=== PATIENT | male | born 1985 | race Caucasian/White ===

== ENCOUNTER → 2020-07-08 | Outpatient (CLI) | payer SELFPAY | END | disposition home or self-care (01) | LOC: LABWHC1 12:02 | PROVIDERS: ATTEND Emergency Medicine | DX: Z20.828 Contact with and (suspected) exposure to other viral communicable diseases (principal) | CPT/HCPCS: U0003; C9803 ==

== ENCOUNTER 2023-06-19 17:44 | Inpatient (IN) | payer BC ==
[2023-06-19] MEDS ORDERED: NALOXONE 0.4 MG/ML 1 ML VIAL IV PRN (19:45)
[2023-06-19] MEDS: SODIUM CHLORIDE 0.9% 1,000 ML IV SCH (19:58)
[2023-06-19] MEDS ORDERED: ONDANSETRON 4 MG/2 ML VIAL IVP STA (20:01)
--- NOTE | 2023-06-19 21:08 | ED ---
Skin/Abscess/FB HPI - General Chief complaint: Skin/Abscess/Foreign Body Stated complaint: R Hand Infection Time Seen by Provider: 06/19/23 19:31 Source: patient, EMS Mode of arrival: EMS - History of Present Illness Initial comments: This patient is 37-year-old man who arrives here as a transfer from [facility]. The patient had gone there to have evaluation of swelling to the dorsum of his hand that is been getting progressively worse over approximately 3 days. The patient had not noted injury. Denies systemic symptoms. Case reportedly was discussed with hand surgeon and patient transferred here. He did receive dose of IV Unasyn. complaint: discoloration, other -: days(s) Tetanus Up to Date: yes Location: R hand Severity: moderate Quality: dull Consistency: constant Improves with: immobilization Worsens with: movement Context: none Associated symptoms: denies other symptoms Treatments Prior to Arrival: antibiotic - Related Data Home Medications Medication Instructions Recorded Confirmed Atorvastatin [Lipitor] 10 mg PO DAILY 06/19/23 06/19/23 Fexofenadine HCl [Gloria Allergy] 180 mg PO DAILY 06/19/23 06/19/23 Sertraline [Zoloft] 100 mg PO DAILY 06/19/23 06/19/23 Tamsulosin [Flomax] 0.4 mg PO DAILY 06/19/23 06/19/23 modafiniL [Provigil] 200 mg PO DAILY 06/19/23 06/19/23 Allergies Allergy/AdvReac Type Severity Reaction Status Date / Time Penicillins Allergy Anaphylaxis Verified 06/20/23 15:34 Review of Systems ROS Statement: Those systems with pertinent positive or pertinent negative responses have been documented in the HPI. ROS Other: All systems not noted in ROS Statement are negative. Constitutional: Denies: fever, chills, weakness Respiratory: Denies: cough, dyspnea Cardiovascular: Denies: chest pain, palpitations Gastrointestinal: Denies: nausea, vomiting Skin: Reports: change in color Neurological: Denies: headache, weakness, numbness Past Medical History Past Medical History: Hyperlipidemia History of Any Multi-Drug Resistant Organisms: None Reported Past Surgical History: Hernia Repair Past Anesthesia/Blood Transfusion Reactions: No Reported Reaction Past Psychological History: ADD/ADHD, Anxiety, Depression Smoking Status: Never smoker Past Alcohol Use History: Occasional Past Drug Use History: Marijuana General Exam General appearance: alert, in no apparent distress Head exam: Present: atraumatic, normocephalic Eye exam: Present: normal appearance. Absent: scleral icterus, conjunctival injection Neck exam: Present: normal inspection Respiratory exam: Present: normal lung sounds bilaterally. Absent: respiratory distress, wheezes, rales, rhonchi, stridor Cardiovascular Exam: Present: regular rate, normal rhythm, normal heart sounds. Absent: systolic murmur, diastolic murmur, rubs, gallop GI/Abdominal exam: Present: soft. Absent: tenderness Back exam: Present: normal inspection Neurological exam: Present: alert. Absent: motor sensory deficit Skin exam: Present: warm, dry, intact, erythema. Absent: rash Course Vital Signs 06/19/23 06/19/23 06/19/23 17:55 20:00 21:00 Temperature 99.2 F Pulse Rate 80 84 82 Pulse Rate [ Left] Respiratory 18 18 18 Rate Blood Pressure 132/84 130/78 128/79 Blood Pressure [Right Arm] O2 Sat by Pulse 100 100 100 Oximetry 06/20/23 06/20/23 06:26 07:25 Temperature 98.5 F Pulse Rate 80 Pulse Rate [ 60 Left] Respiratory 16 16 Rate Blood Pressure 113/72 Blood Pressure 132/67 [Right Arm] O2 Sat by Pulse 99 98 Oximetry Medical Decision Making - Medical Decision Making Patient is 37-year-old man transferred here from [facility] to have admission with hand surgery for possible incision and drainage. The patient discussed with the orthopedic surgeon and will be admitted. Fluids and antibiotics are continued. Was pt. sent in by a medical professional or institution (Dr. PA, REGIONAL TRAINER, urgent care, hospital, or senior care...) When possible be specific @ -Yes sent from [facility] to have admission Did you speak to anyone other than the patient for history (EMS, parent, family, police, friend...)? What history was obtained from this source @ -[Patient's partner contributed history Did you review nursing and triage notes (agree or disagree)? Why? @ -[I reviewed and agree with nursing and triage notes] Were old charts reviewed (outside hosp., previous admission, EMS record, old EKG, old radiological studies, urgent care reports/EKG's, senior care records)? Report findings @ -[No old charts were reviewed] Differential Diagnosis (chest pain, altered mental status, abdominal pain women, abdominal pain men, vaginal bleeding, weakness, fever, dyspnea, syncope, headache, dizziness, GI bleed, back pain, seizure, CVA, palpatations, mental health, musculoskeletal)? @ -[The differential diagnosis for the patient's right hand infection includes cellulitis, abscess, septic arthritis, tenosynovitis, amongst other conditions EKG interpreted by me (3pts min.). @ -[As above] X-rays interpreted by me (1pt min.). @ -[None done] CT interpreted by me (1pt min.). @ -[None done] U/S interpreted by me (1pt. min.). @ -[None done] What testing was considered but not performed or refused? (CT, X-rays, U/S, labs)? Why? @ -[None] What meds were considered but not given or refused? Why? @ -[None] Did you discuss the management of the patient with other professionals (professionals i.e. , PA, REGIONAL TRAINER, lab, RT, psych nurse, licensed master social worker, dust collector treater, teacher, medical scientific officer, gearcase assembler)? Give summary @ -[Case discussed with Dr. Romero, with his treatment recommendations incorporated Was smoking cessation discussed for >3mins.? @ -[No] Was critical care preformed (if so, how long)? @ -[No] Were there social determinants of health that impacted care today? How? (Homelessness, low income, unemployed, alcoholism, drug addiction, transportation, low edu. Level, literacy, decrease access to med. care, long-term, rehab)? @ -[No] Was there de-escalation of care discussed even if they declined (Discuss DNR or withdrawal of care, Hospice)? DNR status @ -[No] What co-morbidities impacted this encounter? (DM, HTN, Smoking, COPD, CAD, Cancer, CVA, ARF, Chemo, Hep., AIDS, mental health diagnosis, sleep apnea, morbid obesity)? @ -[None] Was patient admitted / discharged? Hospital course, mention meds given and route, prescriptions, significant lab abnormalities, going to OR and other pertinent info. @ -[Admitted, as above Undiagnosed new problem with uncertain prognosis? @ -[No] Drug Therapy requiring intensive monitoring for toxicity (Heparin, Nitro, Insulin, Cardizem)? @ -[No] Were any procedures done? @ -[No] Diagnosis/symptom? @ -[Acute right hand infection Acute, or Chronic, or Acute on Chronic? @ -[default] Uncomplicated (without systemic symptoms) or Complicated (systemic symptoms)? @ -[Uncomplicated Side effects of treatment? @ -[No] Exacerbation, Progression, or Severe Exacerbation? @ -[No] Poses a threat to life or bodily function? How? (Chest pain, USA, IA, pneumonia, PE, COPD, DKA, ARF, appy, cholecystitis, CVA, Diverticulitis, Homicidal, Suicidal, threat to staff... and all critical care pts) @ -[Yes untreated hand infection can progressed to significant loss of function, possibly to sepsis and - Lab Data Result diagrams: 06/22/23 05:19 06/22/23 05:19 Lab Results 06/20/23 06/20/23 06/21/23 Range/Units 06:36 06:37 04:26 WBC 13.7 H 12.27 H (3.8-10.6) k/uL RBC 4.01 L 3.99 L (4.30-5.90) m/uL Hgb 11.1 L 11.8 L (13.0-17.5) gm/dL Hct 36.4 L 36.2 L (39.0-53.0) % MCV 90.8 90.7 (80.0-100.0) fL MCH 27.7 29.6 (25.0-35.0) pg MCHC 30.5 L 32.6 (31.0-37.0) g/dL RDW 12.7 13.0 (11.5-15.5) % Plt Count 258 281 (150-450) k/uL MPV 7.6 9.6 Immature Gran % (Auto) 0.40 % Absolute Nucleated RBC 0 % Neutrophils % 76 66.9 % Lymphocytes % 16 25.4 % Monocytes % 6 6.3 % Eosinophils % 1 0.6 % Basophils % 0 0.4 % Immature Gran # 0.05 X 10*3/uL Neutrophils # 10.4 H 8.21 H (1.3-7.7) k/uL Lymphocytes # 2.3 3.12 (1.0-4.8) k/uL Monocytes # 0.8 0.77 (0-1.0) k/uL Eosinophils # 0.1 0.07 (0-0.7) k/uL Basophils # 0.0 0.05 (0-0.2) k/uL NRBC/100 WBC Diff 0 (0.00-0.01) X 10*3/uL ESR 10 (0-15) mm/hr Sodium 137 (137-145) mmol/L Potassium 3.9 (3.5-5.1) mmol/L Chloride 108 H (98-107) mmol/L Carbon Dioxide 23 (22-30) mmol/L Anion Gap 6 mmol/L BUN 9 (9-20) mg/dL Creatinine 0.61 L (0.66-1.25) mg/dL Est GFR (CKD-EPI) (>=60) Est GFR (CKD-EPI)AfAm >90 (>60 ml/min/1.73 sqM) Est GFR (CKD-EPI)NonAf >90 (>60 ml/min/1.73 sqM) BUN/Creatinine Ratio (12.00-20.00) Ratio Glucose 92 (74-99) mg/dL Calcium 7.8 L (8.4-10.2) mg/dL C-Reactive Protein 8.9 H (<1.0) mg/dL Vancomycin Trough ug/mL 06/21/23 06/21/23 06/21/23 Range/Units 04:26 10:29 10:29 WBC (3.8-10.6) k/uL RBC (4.30-5.90) m/uL Hgb (13.0-17.5) gm/dL Hct (39.0-53.0) % MCV (80.0-100.0) fL MCH (25.0-35.0) pg MCHC (31.0-37.0) g/dL RDW (11.5-15.5) % Plt Count (150-450) k/uL MPV Immature Gran % (Auto) % Absolute Nucleated RBC % Neutrophils % % Lymphocytes % % Monocytes % % Eosinophils % % Basophils % % Immature Gran # X 10*3/uL Neutrophils # (1.3-7.7) k/uL Lymphocytes # (1.0-4.8) k/uL Monocytes # (0-1.0) k/uL Eosinophils # (0-0.7) k/uL Basophils # (0-0.2) k/uL NRBC/100 WBC Diff (0.00-0.01) X 10*3/uL ESR (0-15) mm/hr Sodium 139 (137-145) mmol/L Potassium 3.5 (3.5-5.1) mmol/L Chloride 105 (98-107) mmol/L Carbon Dioxide 22.5 (22-30) mmol/L Anion Gap 11.50 mmol/L BUN 7.5 L (9-20) mg/dL Creatinine 0.8 0.68 (0.66-1.25) mg/dL Est GFR (CKD-EPI) 118 (>=60) Est GFR (CKD-EPI)AfAm >90 (>60 ml/min/1.73 sqM) Est GFR (CKD-EPI)NonAf >90 (>60 ml/min/1.73 sqM) BUN/Creatinine Ratio 9.38 L (12.00-20.00) Ratio Glucose 164 H (74-99) mg/dL Calcium 8.1 L (8.4-10.2) mg/dL C-Reactive Protein (<1.0) mg/dL Vancomycin Trough 25.2 ug/mL 06/22/23 06/22/23 Range/Units 05:19 05:19 WBC 8.43 (3.8-10.6) k/uL RBC 3.85 L (4.30-5.90) m/uL Hgb 11.2 L (13.0-17.5) gm/dL Hct 35.1 L (39.0-53.0) % MCV 91.2 (80.0-100.0) fL MCH 29.1 (25.0-35.0) pg MCHC 31.9 L (31.0-37.0) g/dL RDW 13.0 (11.5-15.5) % Plt Count 275 (150-450) k/uL MPV 9.4 L Immature Gran % (Auto) 0.20 % Absolute Nucleated RBC 0 % Neutrophils % 56.6 % Lymphocytes % 31.4 % Monocytes % 9.1 % Eosinophils % 2.0 % Basophils % 0.7 % Immature Gran # 0.02 X 10*3/uL Neutrophils # 4.76 (1.3-7.7) k/uL Lymphocytes # 2.65 (1.0-4.8) k/uL Monocytes # 0.77 (0-1.0) k/uL Eosinophils # 0.17 (0-0.7) k/uL Basophils # 0.06 (0-0.2) k/uL NRBC/100 WBC Diff 0 (0.00-0.01) X 10*3/uL ESR (0-15) mm/hr Sodium 139 (137-145) mmol/L Potassium 3.9 (3.5-5.1) mmol/L Chloride 106 (98-107) mmol/L Carbon Dioxide 27 (22-30) mmol/L Anion Gap 6 mmol/L BUN 8 L (9-20) mg/dL Creatinine 0.67 (0.66-1.25) mg/dL Est GFR (CKD-EPI) (>=60) Est GFR (CKD-EPI)AfAm >90 (>60 ml/min/1.73 sqM) Est GFR (CKD-EPI)NonAf >90 (>60 ml/min/1.73 sqM) BUN/Creatinine Ratio (12.00-20.00) Ratio Glucose 92 (74-99) mg/dL Calcium 8.0 L (8.4-10.2) mg/dL C-Reactive Protein (<1.0) mg/dL Vancomycin Trough ug/mL Disposition Clinical Impression: Infected hand Disposition: ADMITTED IP TO THIS HOSP Condition: Fair
[2023-06-19] MEDS: ACETAMINOPHEN TAB 325 MG TAB PO PRN (21:09)
[2023-06-19] MEDS: FAMOTIDINE 20 MG TAB PO SCH (21:09)
[2023-06-19] MEDS: AMPICILLIN-SULBACTAM 3 GM in SODIUM CHLORIDE 0.9% 100 ML IVPB SCH (21:38)
[2023-06-20] MEDS: MELATONIN 5 MG TABLET PO SCH ×2 (03:18→20:26)
[2023-06-20] MEDS: ACETAMINOPHEN TAB 325 MG TAB PO PRN ×2 (03:18→08:06)
[2023-06-20] MEDS: AMPICILLIN-SULBACTAM 3 GM in SODIUM CHLORIDE 0.9% 100 ML IVPB SCH ×3 (03:18→18:37)
[2023-06-20] MEDS ORDERED: LACTATED RINGERS 1,000 ML IV ONE (05:30)
[2023-06-20 06:57] LABS: Basophils % (A) 0 %; Eosinophils # (A) 0.1 k/uL (0-0.7); Eosinophils % (A) 1 %; HCT 36.4 % (39.0-53.0); HGB 11.1 gm/dL (13.0-17.5); Lymphocytes # (A) 2.3 k/uL (1.0-4.8); Lymphocytes % (A) 16 %; MCH 27.7 pg (25.0-35.0); MCHC 30.5 g/dL (31.0-37.0); MCV 90.8 fL (80.0-100.0); Mean Platelet Volume 7.6; Monocytes # (A) 0.8 k/uL (0-1.0); Monocytes % (A) 6 %; Neutrophils # (A) 10.4 k/uL (1.3-7.7); Neutrophils % (A) 76 %; Platelet Count 258 k/uL (150-450); RBC 4.01 m/uL (4.30-5.90); RDW 12.7 % (11.5-15.5); WBC 13.7 k/uL (3.8-10.6)
[2023-06-20 07:06] LABS: African American GFR (CKD) >90 (>60 ml/min/1.73 sqM); Anion Gap 6 mmol/L; Blood Urea Nitrogen 9 mg/dL (9-20); Calcium 7.8 mg/dL (8.4-10.2); Carbon Dioxide 23 mmol/L (22-30); Chloride 108 mmol/L (98-107); Glucose 92 mg/dL (74-99); Non-African American GFR(CKD) >90 (>60 ml/min/1.73 sqM); Potassium 3.9 mmol/L (3.5-5.1); Sodium 137 mmol/L (137-145)
[2023-06-20] MEDS: FAMOTIDINE 20 MG TAB PO SCH ×2 (08:07→20:26)
[2023-06-20] MEDS: SODIUM CHLORIDE 0.9% 1,000 ML IV SCH (08:07)
--- NOTE | 2023-06-20 10:03 | P.HPOR ---
History of Present Illness H&P Date: 06/20/23 Chief Complaint: Right hand/wrist pain Patient is a 37-year-old male who presented to the emergency department at [facility] yesterday with increasing right hand/wrist pain as well as swelling and erythema. Patient seen at bedside this morning lying semirecumbent position. Patient states that on Sunday he noticed his right hand began to hurt on the dorsum. Patient noticed on Sunday/Sunday it began to swell more and became red. Patient did begin to have difficulty extending his right wrist and digits 2 through 5 on the right hand. Patient denies any injuries/traumas to the hand. Patient mentions many years ago he did have what he thinks was a ganglion cyst on his left hand/wrist. Patient denies having any other infections before in the hand. Patient says he does get increased pain when he tries to flex or extend his right wrist or extend the digits and right hand. Patient says pain is alleviated somewhat by medication and keeping his right raya d and mobile. Patient denies any issues with his right elbow. Patient denies chest pain, fever, shortness of breath, nausea, vomiting, change in vision, loss of all/bladder control. Past Medical History Past Medical History: Hyperlipidemia History of Any Multi-Drug Resistant Organisms: None Reported Past Surgical History: Hernia Repair Past Anesthesia/Blood Transfusion Reactions: No Reported Reaction Past Psychological History: ADD/ADHD, Anxiety, Depression Smoking Status: Never smoker Past Alcohol Use History: Occasional Past Drug Use History: Marijuana Medications and Allergies Home Medications Medication Instructions Recorded Confirmed Type Atorvastatin [Lipitor] 10 mg PO DAILY 06/19/23 06/19/23 History Fexofenadine HCl [Gloria Allergy] 180 mg PO DAILY 06/19/23 06/19/23 History Sertraline [Zoloft] 100 mg PO DAILY 06/19/23 06/19/23 History Tamsulosin [Flomax] 0.4 mg PO DAILY 06/19/23 06/19/23 History modafiniL [Provigil] 200 mg PO DAILY 06/19/23 06/19/23 History Allergies Allergy/AdvReac Type Severity Reaction Status Date / Time Penicillins Allergy Anaphylaxis Verified 06/19/23 21:20 Physical Examination Osteopathic Statement: *. No significant issues noted on an osteopathic structural exam other than those noted in the History and Physical/Consult. Inspection: Right hand/wrist one dorsum does present with erythema and swelling. Erythema extends from the dorsum of the right wrist all the way to the MCPJ 2- 5. Negative for any ecchymosis. Negative for any puncture wounds/open wounds Sensation: Sensation is equal, symmetric, bilaterally intact throughout the upper upper extremities Palpation: Significant tenderness to palpation over the right hand dorsum at the wrist on the radial side. TTP does extend distally especially over the second third and fourth web spaces. Fingertips are nontender to palpation. Range of motion: Patient does keep wrist held close to full extension and fingers in flexion. Patient is unable to flex right wrist without having increasing pain. Patient developed to extend digits and right hand without worsening pain. Patient has full range of motion in flexion/extension of right elbow. Motor: 5/5 in all major motor groups in left upper extremity. 5/5 in right elbow in resisted flexion/extension. 4-/5 and right wrist in resisted flexion extension. Special tests: Negative Homans bilaterally. Neurovascular: Radial pulse intact, 2+ bilaterally. Cap refill under 3 seconds in digits in upper extremities. Results - Labs Labs: Abnormal Lab Results - Last 24 Hours (Table) 06/20/23 06/20/23 Range/Units 06:36 06:37 WBC 13.7 H (3.8-10.6) k/uL RBC 4.01 L (4.30-5.90) m/uL Hgb 11.1 L (13.0-17.5) gm/dL Hct 36.4 L (39.0-53.0) % MCHC 30.5 L (31.0-37.0) g/dL Neutrophils # 10.4 H (1.3-7.7) k/uL Chloride 108 H (98-107) mmol/L Creatinine 0.61 L (0.66-1.25) mg/dL Calcium 7.8 L (8.4-10.2) mg/dL H & H 06/20/23 Range/Units 06:37 Hgb 11.1 L (13.0-17.5) gm/dL Hct 36.4 L (39.0-53.0) % Result Diagrams: 06/20/23 06:37 06/20/23 06:36 Assessment and Plan Assessment: 1. Right hand dorsal wrist abscess versus horseshoe abscess vs tenosynovitis vs cellulitis Plan: 1. Right hand dorsal wrist abscess versus horseshoe abscess vs tenosynovitis vs cellulitis - patient stable at bedside this morning. I did discuss findings of exam with my attending, Dr. Romero. At this time we plan for aspiration of right wrist/hand at bedside later this morning. patient to remain NPO at this time. Depending on outcome of aspiration we may move forward with surgery for I&D right wrist/hand later today. Surgery has been boarded for later today. Pain medication as needed. We will continue to follow patient during his stay in hospital. 2. Appreciate medical management and ID management - patient does need medical clearance for surgery; ID consulted for right wrist/hand infection 3. Pain management - tylenol 4. DVT ppx - withhold thinners at this time 5. GI ppx - pepcid 6. PT/OT - WBAT Agree with above findings. Bedside aspiration was attempted and less than 1cc of cloudy appearing fluid was obtained. At this time I cannot rule out any deep infection and recommend surgical incision and drainage with wrist arthrotomy of the right wrist. Risks and benefits of the surgery including bleeding, infection, damage to surrounding tissue, need for further surgery as well as risks of anesthesia including DVT, PE and even and patient wishes to go forward with surgical intervention. We will plan for intervention today 06/20/23. Time with Patient: Less than 30
[2023-06-20 10:23] LABS: C Reactive Protein 8.9 mg/dL (<1.0)
[2023-06-20] MEDS: TAMSULOSIN 0.4 MG CAP.ER.24H PO SCH (10:31)
[2023-06-20] MEDS: SERTRALINE 100 MG TAB PO SCH (10:31)
[2023-06-20] MEDS: ATORVASTATIN 10 MG TAB PO SCH (10:31)
[2023-06-20 10:53] LABS: Erythrocyte Sedimentation Rate 10 mm/hr (0-15)
[2023-06-20] MEDS ORDERED: VANCOMYCIN IV PER PHARMACY 1 EACH MISC MISCELLANE PRN (11:22)
[2023-06-20] MEDS ORDERED: VANCOMYCIN 1,250 MG in SODIUM CHLORIDE 0.9% 250 ML IVPB ONE (12:00)
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
--- NOTE | 2023-06-20 14:26 | P.CONS ---
History of Present Illness - Reason for Consult Consult date: 06/20/23 Medical Management Requesting physician: Mohamud Romero - History of Present Illness History of Presenting Illness: Patient is a very pleasant 37-year-old male with a past medical history of hyperlipidemia, ADHD, anxiety, depression, cannabinoid use disorder and BPH. He presented to the emergency department overnight on 06/19/23 secondary to pain and swelling of right hand. Patient reports he awoke on Sunday morning after sleeping on the couch feeling as though he slept on his hand the wrong way and states it seemed just a little sore. However, he then reports throughout the day Sunday and Sunday he noticed mild swelling and pain in his right hand and wrist but reports the redness, swelling, and pain rapidly worsened since Sunday and that he was unable to get into his primary care doctor so he went to the urgent care and was directed to come straight to the hospital. Upon arrival to the emergency department patient underwent full evaluation. Vital signs were stable with blood pressure 132/84, heart rate 80, respiratory rate 18, tempe rature 99.2F, and SpO2 of 100% on room air. Labs completed and reviewed. CBC revealed leukocytosis with WBC count of 13.7 and normocytic anemia with hemoglobin of 11.1. BMP unremarkable. ESR was normal findings at 10. CRP 8.9. Patient was admitted under orthopedic surgery team and we have been consulted for medical management throughout patient's hospitalization. At time of assessment, patient was preparing to undergo needle aspiration by Dr. Romero orthopedic surgeon at bedside. He reported decreased range of motion and difficulties making a fist secondary to pain and swelling in right hand. He denied having any numbness or focal weakness in his right hand. Sensation and movement of fingers remains intact. Patient denied previously noting any bug bite, abrasion, or cut to his right hand prior to development of redness/swelling/pain. He reports last TDAP was 2013. Patient denies having any fevers, chills, diaphoresis, chest pain, palpitations, shortness of breath, or any other complaints at this time. Review of systems: Pertinent positives and negatives as discussed in HPI, a complete review of systems was performed and all other systems are negative. Physical exam: Vital signs reviewed and stable. General: Nontoxic, no distress and appears stated age. Derm: Skin warm and dry, normal coloration for ethnicity. Patient with moderate erythema and mild swelling covering the dorsal surface of his right hand. Erythema and swelling beginning just proximally of right wrist extending down into dorsal surface of hand and distally into webbed region of fingers. No open wounds, bite alicia, or puncture alicia noted upon examination of skin. Head: Atraumatic, normocephalic and symmetric. Eyes: EOMs intact, no lid lag, and anicteric sclera Mouth: no lip lesions, mucus membranes moist Cardiovascular: regular rate and rhythm with normal S1S2, no murmur, positive posterior tibial pulses bilaterally, and cap refill < 2 seconds. Lungs: Respirations even, regular, and unlabored on room air. Lungs CTA bilaterally, no rhonchi, no rales, no wheezing, and no accessory muscle usage. Abdominal: soft, nontender to palpation, no guarding, no appreciable organomegaly Ext: No gross muscle atrophy, no edema, no contractures. Patient with decreased range of motion in wrist secondary to pain, difficulty making a tight fist and has difficulty bending wrist secondary to reports of significant pain. Patient able to bend and move fingers without difficulty and has full movement of the elbow. Movement and sensation of fingers intact. Neuro: Speech clear, face symmetrical and CN II-XII grossly intact with no noted focal neuro deficits Psych: Alert and oriented to person, place, time, and situation. Appropriate and pleasant affect. Assessment and Plan of Care: Right hand and wrist cellulitis, unable to rule out abscess versus tenosynovitis Leukocytosis -Labs completed and reviewed. CBC revealed leukocytosis with WBC count of 13.7 and normocytic anemia with hemoglobin of 11.1. BMP unremarkable. ESR was normal findings at 10. CRP 8.9. -Continue with IV antibiotic Unasyn 3 g every 6 hours and vancomycin 1250 mg IVPB every 8 hours pending culture results obtained by orthopedic surgery team during needle aspiration. -Infectious disease was consulted, discussed plan of care with Dr. Lara recommended adding on vancomycin in addition to Unasyn. -Continue symptomatic care and pain management . -Primary admitting orthopedic surgery team to manage postoperative dressing/postoperative wound care. -We will follow up on repeat morning CBC and BMP along with vancomycin trough for close monitoring to watch for any signs of vancomycin associated renal toxicity. Hyperlipidemia -Home medications reviewed and reordered. Patient to continue with daily medication regimen with atorvastatin 10 mg daily. ADD/ADHD -We will hold Provigil at this time, patient may resume at time of discharge. Depression and anxiety -Reviewed and reordered sertraline 100 mg daily. BPH -Continue daily medication regimen with Flomax 0.4 mg daily. Thank you for allowing us to participate in the care of this pleasant patient. Do not hesitate to contact us with questions. Someone can be reached from the [facility] hospitalist group all hours of the day at [phone] or via [employer]. Patient was seen independently by Nurse Practitioner. This document was prepared using [employer] dictation software. Please allow for errors in powerhouse operator while rare they do occur. Michael Mcbride NP rendered care for this patient independently, reviewed the findings and plan as documented in the note above. I did not physically speak with or examine the patient on this date. Past Medical History Past Medical History: Hyperlipidemia History of Any Multi-Drug Resistant Organisms: None Reported Past Surgical History: Hernia Repair Past Anesthesia/Blood Transfusion Reactions: No Reported Reaction Past Psychological History: ADD/ADHD, Anxiety, Depression Smoking Status: Never smoker Past Alcohol Use History: Occasional Past Drug Use History: Marijuana Medications and Allergies Home Medications Medication Instructions Recorded Confirmed Type Atorvastatin [Lipitor] 10 mg PO DAILY 06/19/23 06/19/23 History Fexofenadine HCl [Gloria Allergy] 180 mg PO DAILY 06/19/23 06/19/23 History Sertraline [Zoloft] 100 mg PO DAILY 06/19/23 06/19/23 History Tamsulosin [Flomax] 0.4 mg PO DAILY 06/19/23 06/19/23 History modafiniL [Provigil] 200 mg PO DAILY 06/19/23 06/19/23 History Allergies Allergy/AdvReac Type Severity Reaction Status Date / Time Penicillins Allergy Anaphylaxis Verified 06/20/23 15:34 Physical Exam Vitals: Vital Signs Temp Pulse Pulse Resp BP BP Pulse Ox 06/20/23 07:25 98.5 F 60 16 132/67 98 06/20/23 06:26 80 16 113/72 99 06/19/23 21:00 82 18 128/79 100 06/19/23 20:00 84 18 130/78 100 06/19/23 17:55 99.2 F 80 18 132/84 100 Intake and Output 07/25/23 07/26/23 07/26/23 22:59 06:59 14:59 Other: Weight 65.771 kg Results CBC & Chem 7: 06/22/23 05:19 06/22/23 05:19 Labs: Abnormal Lab Results - Last 24 Hours (Table) 06/20/23 06/20/23 Range/Units 06:36 06:37 WBC 13.7 H (3.8-10.6) k/uL RBC 4.01 L (4.30-5.90) m/uL Hgb 11.1 L (13.0-17.5) gm/dL Hct 36.4 L (39.0-53.0) % MCHC 30.5 L (31.0-37.0) g/dL Neutrophils # 10.4 H (1.3-7.7) k/uL Chloride 108 H (98-107) mmol/L Creatinine 0.61 L (0.66-1.25) mg/dL Calcium 7.8 L (8.4-10.2) mg/dL
[2023-06-20] MEDS ORDERED: fentaNYL (PF) 50 MCG/ML 2 ML AMP ONE (16:07)
[2023-06-20] MEDS ORDERED: LIDOCAINE 2% INJ 20 MG/ML (2 ML VIAL) ONE (16:07)
[2023-06-20] MEDS ORDERED: HYDROmorphone (PF) 1 MG/ML ONE (16:07)
[2023-06-20] MEDS ORDERED: MIDAZOLAM 2 MG/2 ML VIAL ONE (16:07)
[2023-06-20] MEDS ORDERED: PROPOFOL 10 MG/ML 20 ML VIAL IV ONE (16:07)
[2023-06-20] MEDS ORDERED: BUPIVACAINE (PF) 0.5% 30 ML VIAL SQ ONE (16:29)
[2023-06-20] MEDS ORDERED: SENNOSIDES-DOCUSATE SODIUM 1 EACH TAB PO PRN (17:05)
[2023-06-20] MEDS: traMADol 50 MG TAB PO SCH (18:32)
[2023-06-20] MEDS: PANTOPRAZOLE 40 MG/10 ML VIAL IVP SCH (18:38)
[2023-06-20] MEDS: HYDROmorphone 0.5 MG/0.5 ML SYRINGE IVP PRN (20:25)
[2023-06-20] MEDS ORDERED: MELATONIN 5 MG TABLET PO SCH (21:00)
[2023-06-20] MEDS: VANCOMYCIN 1,250 MG in SODIUM CHLORIDE 0.9% 250 ML IVPB SCH (21:54)
--- NOTE | 2023-06-20 22:42 | P.CONS ---
History of Present Illness - Reason for Consult Consult date: 06/20/23 - History of Present Illness Patient is a 37-year-old male with a past medical history sniffing and for hyperlipidemia ADHD anxiety and depression presenting to [facility] ER for evaluation of increasing pain swelling redness to the right wrist. Symptom has been going on since weekend without any history of any trauma symptoms getting worse over the last day and 2 patient describes the pain to be more of a sharp in nature almost 10 out of 10 in severity without any radiation however did complain of some numbness to the right elbow area with the center of the patient present to the hospital on arrival to the ER the patient did have a low-grade fever of 99.2 degrees on height patient was not tachycardic hypotensive or hypoxic he did have a white count of 13.7 with a left shift the patient has been normal CRP was 8.9 x-rays not obtained patient did have aspiration of the area by hand surgery this morning with evidence of some milky fluid concerning for underlying infection and has been advising washout of the wrist joint patient was started on Unasyn despite his penicillin allergy and has tolerated so far infectious disease was consulted for further management of antibiotic therapy Past Medical History Past Medical History: Hyperlipidemia History of Any Multi-Drug Resistant Organisms: None Reported Past Surgical History: Hernia Repair Past Anesthesia/Blood Transfusion Reactions: No Reported Reaction Past Psychological History: ADD/ADHD, Anxiety, Depression Smoking Status: Never smoker Past Alcohol Use History: Occasional Past Drug Use History: Marijuana Medications and Allergies Home Medications Medication Instructions Recorded Confirmed Type Atorvastatin [Lipitor] 10 mg PO DAILY 06/19/23 06/19/23 History Fexofenadine HCl [Gloria Allergy] 180 mg PO DAILY 06/19/23 06/19/23 History Sertraline [Zoloft] 100 mg PO DAILY 06/19/23 06/19/23 History Tamsulosin [Flomax] 0.4 mg PO DAILY 06/19/23 06/19/23 History modafiniL [Provigil] 200 mg PO DAILY 06/19/23 06/19/23 History Allergies Allergy/AdvReac Type Severity Reaction Status Date / Time Penicillins Allergy Anaphylaxis Verified 06/20/23 15:34 Physical Exam Vitals: Vital Signs Temp Pulse Pulse Resp BP BP Pulse Ox 06/20/23 07:25 98.5 F 60 16 132/67 98 06/20/23 06:26 80 16 113/72 99 06/19/23 21:00 82 18 128/79 100 06/19/23 20:00 84 18 130/78 100 06/19/23 17:55 99.2 F 80 18 132/84 100 Intake and Output 06/19/23 06/20/23 06/20/23 22:59 06:59 14:59 Intake Total 118 Balance 118 Intake: Oral 118 Other: Weight 65.771 kg Results CBC & Chem 7: 06/20/23 06:37 06/20/23 06:36 Labs: Abnormal Lab Results - Last 24 Hours (Table) 06/20/23 06/20/23 Range/Units 06:36 06:37 WBC 13.7 H (3.8-10.6) k/uL RBC 4.01 L (4.30-5.90) m/uL Hgb 11.1 L (13.0-17.5) gm/dL Hct 36.4 L (39.0-53.0) % MCHC 30.5 L (31.0-37.0) g/dL Neutrophils # 10.4 H (1.3-7.7) k/uL Chloride 108 H (98-107) mmol/L Creatinine 0.61 L (0.66-1.25) mg/dL Calcium 7.8 L (8.4-10.2) mg/dL C-Reactive Protein 8.9 H (<1.0) mg/dL Assessment and Plan Plan: 1patient was in the hospital with a right wrist and dorsal hand cellulitis and concern for possible underlying septic arthritis or abscess likely from gram- positive skin jyotsna 2-penicillin allergy as a child however tolerated Unasyn clinically doubt true penicillin allergy 3-await surgical I&D and deep culture 4-continue Unasyn however add vancomycin while waiting for the cultures to be finalized We will follow on clinical condition and cultures to further adjust medication if needed Thank you for this consultation we will follow the patient along with you Dictation was produced using [email or web address] dictation software. please excuse any grammatical, word or spelling errors. Time with Patient: Greater than 30
[2023-06-21] MEDS: AMPICILLIN-SULBACTAM 3 GM in SODIUM CHLORIDE 0.9% 100 ML IVPB SCH ×5 (00:10→21:16)
[2023-06-21] MEDS: SODIUM CHLORIDE 0.9% 1,000 ML IV SCH ×3 (00:10→21:17)
[2023-06-21] MEDS: HYDROmorphone 0.5 MG/0.5 ML SYRINGE IVP PRN ×6 (00:32→19:43)
[2023-06-21] MEDS: VANCOMYCIN 1,250 MG in SODIUM CHLORIDE 0.9% 250 ML IVPB SCH ×3 (04:09→17:46)
[2023-06-21 08:35] LABS: Basophils # (A) 0.05 X 10*3/uL (0.00-0.10); Basophils % (A) 0.4 %; Eosinophils # (A) 0.07 X 10*3/uL (0.04-0.35); Eosinophils % (A) 0.6 %; HCT 36.2 % (39.6-50.0); HGB 11.8 d/dL (13.0-17.0); Lymphocytes # (A) 3.12 X 10*3/uL (0.90-5.00); Lymphocytes % (A) 25.4 %; MCH 29.6 pg (27.0-32.0); MCHC 32.6 d/dL (32.0-37.0); MCV 90.7 FL (80.0-97.0); Mean Platelet Volume 9.6 FL (9.5-12.2); Monocytes # (A) 0.77 X 10*3/uL (0.20-1.00); Monocytes % (A) 6.3 %; NRBC Per 100 WBC 0 X 10*3/uL (0.00-0.01); Neutrophils # (A) 8.21 X 10*3/uL (1.80-7.70); Neutrophils % (A) 66.9 %; Platelet Count 281 X 10*3/uL (140-440); RBC 3.99 X 10*6/uL (4.40-5.60); WBC 12.27 X 10*3/uL (4.50-10.00)
[2023-06-21 08:59] LABS: BUN/Creat Ratio 9.38 Ratio (12.00-20.00); Blood Urea Nitrogen 7.5 mg/dL (9.0-27.0); Calcium 8.1 mg/dL (8.7-10.3); Carbon Dioxide 22.5 mmol/L (21.6-31.8); Chloride 105 mmol/L (96-109); Glucose 164 mg/dL (70-110); Potassium 3.5 mmol/L (3.5-5.5); Sodium 139 mmol/L (135-145)
[2023-06-21] MEDS: ATORVASTATIN 10 MG TAB PO SCH (09:24)
[2023-06-21] MEDS: FAMOTIDINE 20 MG TAB PO SCH ×2 (09:24→21:16)
[2023-06-21] MEDS: SERTRALINE 100 MG TAB PO SCH (09:24)
[2023-06-21] MEDS: TAMSULOSIN 0.4 MG CAP.ER.24H PO SCH (09:24)
[2023-06-21] MEDS: traMADol 50 MG TAB PO SCH ×3 (09:24→21:16)
[2023-06-21] MEDS ORDERED: VANCOMYCIN TROUGH DUE 1 EACH MISC MISCELLANE ONE (11:00)
--- NOTE | 2023-06-21 11:01 | P.OP ---
Date of Procedure: 06/20/23 Preoperative Diagnosis: Right wrist pyogenic extensor tenosynovitis Postoperative Diagnosis: Right wrist pyogenic extensor tenosynovitis Procedure(s) Performed: 1.) Right wrist arthrotomy 2.) Right wrist incision, irrigation and debridement of subcutaneous tissue, and tenosynovium. 3.) Right wrist extensor tenosynovectomy Anesthesia: CHRISTOPHER Surgeon: Mohamud Romero Premium Note Interest Calculator Clerk #1: Jhon Lopez Estimated Blood Loss (ml): 30 Pathology: other (Culture x3. Superficial, intra-articular wrist, and extensor tenosynovium.) Condition: stable Disposition: PACU Description of Procedure: This is a 37 year old male who presented to the ED with complaints of a several day history of right wrist pain, swelling and erythema. He presents today for surgical intervention for his right wrist infection. Risks and benefits of surgery were discussed with the patient including bleeding, damage to surrounding tissue, infection, need for further surgery as well as risks of anesthesia including pulmonary embolism and even and the patient wished to proceed with surgical intervention. The patient was seen in the pre-operative area by myself. Consent and H&P were completed and updated. The correct extremity was marked in the pre-operative area by myself and all other questions were answered. Operative Narrative: The patient was brought to the operating room by the department of anesthesia. They remained on the portable stretcher and a rolling hand table was brought to the side of the operative extremity. Pre-operative time out was performed indicating the correct patient, procedure and laterality. All in the room agreed. Pre-operative antibiotics were given prior to skin incision. The patient was then drifted off to sleep by the department of anesthesia. A nonsterile tourniquet was then applied to the operative extremity and the right upper extremity was then prepped and draped in normal sterile fashion. The operative extremity was then held to gravity and tourniquet was inflated to 250mmHg. Longitudinal incision was made with a 15 blade scalpel over the dorsal aspect of the wrist. Blunt dissection was taken down through subcutaneous tissues and meticulous hemostasis was performed with Bovie cautery. The third dorsal compartment was released in it's entirety and clear fluid was visualized and cultures were taken. Interval between the 2nd and 4th compartment was entered to reveal the dorsal wrist capsule. Arthrotomy was performed at the radiocarpal joint and cultures were taken. Serosanguinous joint fluid was visualized with no obvious purulence located in the radiocarpal joint. The SL ligament was intact and no signs of arthritis were present. Further exploration was performed and there was kolby purulence located in the fourth extensor compartment with abundant tenosynovium surrounding the extensor tendons. This was incised with a 15 blade scalpel and the fourth extensor compartment was decompressed and tenolysis was performed. 3 L of sterile saline was then irrigated, both in the radiocarpal joint and throughout all the extensor tendon compartments. The fifth extensor compartment was also identified and was found to have cloudy- looking fluid located in the tendon sheath. This was incised and irrigated as well. Non viable subcutaneous fat and extensor tenosynovium was excised with a 15 blade scalpel. The wound was then copiously irrigated once more and closure was performed with 4-0 nylon suture and a sterile dressing consisting of Adaptic, 4 x 4's, Norton roll and Chad wrap was applied. Tourniquet was let down and the hand had immediate perfusion. Jhon PATTERSON was present for the case in its entirety to resist major portions of the procedure. Mohamud Romero D.O. Orthopedic Hand/Upper Extremity Surgeon
[2023-06-21 11:09] LABS: African American GFR (CKD) >90 (>60 ml/min/1.73 sqM); Non-African American GFR(CKD) >90 (>60 ml/min/1.73 sqM)
[2023-06-21] MEDS: PANTOPRAZOLE 40 MG/10 ML VIAL IVP SCH (12:04)
--- NOTE | 2023-06-21 12:39 | P.PN ---
Subjective Progress Note Date: 06/21/23 Principal diagnosis: Right wrist pyogenic extensor tenosynovitis Patient was seen at bedside this morning lying semirecumbent position with Chad bandage and dressing present over right hand/wrist. Patient says he has been able to move his fingers little bit better than he was yesterday prior to surgery. Patient says he does have some pain when trying to flex his digits and his right hand. Patient says there is a little bit of numbness and tingling in the digits however it is tolerable. Patient says he has urinated since surgery was performed yesterday. Patient denies any other changes at this time. Patient denies chest pain, fever, shards of breath, nausea, vomiting, change in vision, loss of bowel/bladder control. Objective - Vital Signs Vital signs: Vital Signs Temp 98.4 F 06/21/23 07:21 Pulse 68 06/21/23 08:00 Resp 16 06/21/23 08:00 BP 123/81 06/21/23 07:21 Pulse Ox 99 06/21/23 07:21 FiO2 Intake & Output 06/20/23 06/21/23 06/21/23 18:59 06:59 18:59 Intake Total 918 Output Total 30 Balance 888 Intake: IV 800 Oral 118 Output: Estimated Blood Loss 30 Other: # Voids 3 - Exam Inspection: Chad bandage present over right wrist/hand. negative for any active drainage/significant swelling/erythema. Sensation: Sensation is equal, symmetric, bilaterally intact throughout the upper upper extremities Palpation: Moderate tenderness to palpation over the right hand dorsum at the wrist on the radial side. TTP does extend distally especially over the second third and fourth web spaces. Fingertips are nontender to palpation. Range of motion: Patient does keep wrist held close to full extension and fingers in flexion. Patient is unable to flex right wrist without having increasing pain. Patient has full range of motion in flexion/extension of right elbow. Motor: 5/5 in all major motor groups in left upper extremity. 5/5 in right elbow in resisted flexion/extension. 4-/5 and right wrist in resisted flexion extension. Special tests: Negative Homans bilaterally. Neurovascular: Radial pulse intact, 2+ bilaterally. Cap refill under 3 seconds in digits in upper extremities. - Labs CBC & Chem 7: 06/21/23 04:26 06/21/23 10:29 Labs: Abnormal Lab Results - Last 24 Hours (Table) 06/20/23 06/21/23 Range/Units 06:36 04:26 WBC 12.27 H (4.50-10.00) X 10*3/uL RBC 3.99 L (4.40-5.60) X 10*6/uL Hgb 11.8 L (13.0-17.0) d/dL Hct 36.2 L (39.6-50.0) % Neutrophils # 8.21 H (1.80-7.70) X 10*3/uL C-Reactive Protein 8.9 H (<1.0) mg/dL Assessment and Plan Assessment: Right wrist pyogenic extensor tenosynovitis Postoperative day 1 status post: 1.) Right wrist arthrotomy 2.) Right wrist incision, irrigation and debridement of subcutaneous tissue, and tenosynovium. 3.) Right wrist extensor tenosynovectomy Plan: 1. Right wrist pyogenic extensor tenosynovitis - surgery performed yesterday, 06/20/2023right wrist arthrotomy; right wrist I&D of subcu tissue and tenosynovium; right wrist extensor tenosynovectomy. Patient stable bedside this morning with dressing in place. Dressing was left in place at this time and plan for dressing to be taken down this afternoon and begin Hibiclens soaks. Plan for new dressing to be placed after Hibiclens soaks with Adaptic, 4 x 4's and Kerlix. Hibiclens soaks TID 15 mins at a time. Continue pain medication as needed. Cultures taken during surgery are pending at this time. Patient may perform gentle range of motion exercises digits and right hand. Abx recs from ID. We will continue to follow patient during his stay in hospital. 2. Appreciate medical management and ID management - abx recs from ID 3. Pain management - tylenol; tramadol 4. DVT ppx - mechanical 5. GI ppx - protonix 6. PT/OT - WBAT 7. Discharge planning - awaiting cultures to finalize before discharging home, as soon as Sunday. Time with Patient: Less than 30
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
[2023-06-21] MEDS: MELATONIN 5 MG TABLET PO SCH (21:16)
--- NOTE | 2023-06-21 21:37 | P.PN ---
Subjective Progress Note Date: 06/21/23 Principal diagnosis: Right wrist flexor Tenosynovitis patient is a 37-year male presenting the hospital with a right wrist dorsal wall hand pain and swelling and redness, patient did have a bedside aspiration followed by washout by orthopedic surgery lasted concerning for right wrist pyogenic extensor tenosynovitis culture has been obtained which are currently pending. On today's evaluation that is 06/21/2023, the patient denies having any fever or any chills patient pain to the right wrist area is currently controlled patient denies having any chest pain or shortness of breath or cough no nausea vomiting abdominal pain or diarrhea Objective - Vital Signs Vital signs: Vital Signs Temp 98.4 F 06/21/23 07:21 Pulse 68 06/21/23 08:00 Resp 16 06/21/23 08:00 BP 123/81 06/21/23 07:21 Pulse Ox 99 06/21/23 07:21 FiO2 Intake & Output 06/20/23 06/21/23 06/21/23 18:59 06:59 18:59 Intake Total 918 Output Total 30 Balance 888 Intake: IV 800 Oral 118 Output: Estimated Blood Loss 30 Other: # Voids 3 - Exam GENERAL DESCRIPTION: A middle-age male lying in bed in no distress RESPIRATORY SYSTEM: Unlabored breathing , decreased breath sounds at bases HEART: S1 S2 regular rate and rhythm , ABDOMEN: Soft , no tenderness EXTREMITIES: Right wrist is currently wrapped in Chad wrap no drainage on the dressing - Labs CBC & Chem 7: 06/21/23 04:26 06/21/23 10:29 Labs: Abnormal Lab Results - Last 24 Hours (Table) 06/21/23 06/21/23 Range/Units 04:26 04:26 WBC 12.27 H (4.50-10.00) X 10*3/uL RBC 3.99 L (4.40-5.60) X 10*6/uL Hgb 11.8 L (13.0-17.0) d/dL Hct 36.2 L (39.6-50.0) % Neutrophils # 8.21 H (1.80-7.70) X 10*3/uL BUN 7.5 L (9.0-27.0) mg/dL BUN/Creatinine Ratio 9.38 L (12.00-20.00) Ratio Glucose 164 H (70-110) mg/dL Calcium 8.1 L (8.7-10.3) mg/dL Assessment and Plan (1) Pyogenic infection of tendon sheath Current Visit: Yes Status: Acute Code(s): M65.10 - OTHER INFECTIVE (TENO)SYNOVITIS, UNSPECIFIED SITE SNOMED Code(s): 664098633 Plan: 1patient was in the hospital with a right wrist and dorsal hand cellulitis and concern for possible underlying septic arthritis or abscess likely from gram- positive skin jyotsna 2-penicillin allergy as a child however tolerated Unasyn clinically doubt true penicillin allergy 3-patient is status post surgical I&D and deep culture which are currently pending 4-patient to continue Unasyn and vancomycin while waiting for the cultures to be finalized, PICC has been ordered for outpatient IV antibiotics Dictation was produced using [employer] dictation software. please excuse any grammatical, word or spelling errors. Time with Patient: Less than 30
[2023-06-22] MEDS: AMPICILLIN-SULBACTAM 3 GM in SODIUM CHLORIDE 0.9% 100 ML IVPB SCH ×4 (03:36→22:35)
[2023-06-22] MEDS: HYDROmorphone 0.5 MG/0.5 ML SYRINGE IVP PRN ×4 (03:36→20:37)
[2023-06-22] MEDS: VANCOMYCIN 1,250 MG in SODIUM CHLORIDE 0.9% 250 ML IVPB SCH ×2 (05:16→17:39)
[2023-06-22 06:33] LABS: African American GFR (CKD) >90 (>60 ml/min/1.73 sqM); Anion Gap 6 mmol/L; Blood Urea Nitrogen 8 mg/dL (9-20); Carbon Dioxide 27 mmol/L (22-30); Chloride 106 mmol/L (98-107); Glucose 92 mg/dL (74-99); Non-African American GFR(CKD) >90 (>60 ml/min/1.73 sqM); Potassium 3.9 mmol/L (3.5-5.1); Sodium 139 mmol/L (137-145)
[2023-06-22] MEDS ORDERED: LIDOCAINE 1% INJ 10MG/ML (5 ML VIAL-PF) SQ ONE (08:30)
[2023-06-22 08:38] LABS: Basophils # (A) 0.06 X 10*3/uL (0.00-0.10); Basophils % (A) 0.7 %; Eosinophils # (A) 0.17 X 10*3/uL (0.04-0.35); HCT 35.1 % (39.6-50.0); HGB 11.2 d/dL (13.0-17.0); Lymphocytes # (A) 2.65 X 10*3/uL (0.90-5.00); Lymphocytes % (A) 31.4 %; MCH 29.1 pg (27.0-32.0); MCHC 31.9 d/dL (32.0-37.0); MCV 91.2 FL (80.0-97.0); Mean Platelet Volume 9.4 FL (9.5-12.2); Monocytes # (A) 0.77 X 10*3/uL (0.20-1.00); Monocytes % (A) 9.1 %; NRBC Per 100 WBC 0 X 10*3/uL (0.00-0.01); Neutrophils # (A) 4.76 X 10*3/uL (1.80-7.70); Neutrophils % (A) 56.6 %; Platelet Count 275 X 10*3/uL (140-440); RBC 3.85 X 10*6/uL (4.40-5.60); WBC 8.43 X 10*3/uL (4.50-10.00)
--- NOTE | 2023-06-22 08:46 | P.OP ---
Date of Procedure: 06/22/23 Description of Procedure: Date of Procedure: 06/22/2023 Preoperative Diagnosis: Need for long-term IV antibiotic access. Postoperative Diagnosis: Same. Procedure(s) Performed: Ultrasound-guided cannulation left basilic vein. Insertion of peripherally inserted central catheter under fluoroscopic guidance. Anesthesia: local 1% lidocaine carolynn Surgeon: Rosa Estimated Blood Loss (ml): 5 IV fluids (ml): 0 Urine output (ml): 0 Pathology: none sent Condition: stable Disposition: no change Indications for Procedure: Patient is a 37-year-old male who is being seen by orthopedics and requires long-term IV antibiotics as an outpatient patient is offered a PICC line to allow for intravenous administration of antibiotics. Description of Procedure: Patient was brought to the special procedure suite. The left upper extremity sterilely prepped and draped in usual manner. Ultrasound was utilized to identify the basilic vein which was normally compressible free of visible thrombus. Permenant image was stored. 1% Xylocaine was utilized for local anesthesia tissues overlying the vein. Through this anesthetized area and with the aid of ultrasound a micropuncture needle was utilized to cannulate the vein. Once cannulated, Softip guidewire was advanced into the vein. The needle was withdrawn and a micropuncture sheath and dilator advanced over the guidewire. The guidewire was withdrawn and exchanged for the PICC guidewire and measured 46 cm to the cavoatrial junction. The catheter was cut to size and advanced into the cavoatrial junction without resistance. The sheath was peeled away. Blood was easily withdrawn through the catheter and the catheter was then flushed with heparinized saline solution and secured to the skin. Patient tolerated procedure well and was returned to their room in satisfactory and stable condition.
[2023-06-22] MEDS: SERTRALINE 100 MG TAB PO SCH (08:52)
[2023-06-22] MEDS: FAMOTIDINE 20 MG TAB PO SCH ×2 (08:53→20:37)
[2023-06-22] MEDS: PANTOPRAZOLE 40 MG/10 ML VIAL IVP SCH (08:53)
[2023-06-22] MEDS: ATORVASTATIN 10 MG TAB PO SCH (08:53)
[2023-06-22] MEDS: TAMSULOSIN 0.4 MG CAP.ER.24H PO SCH (08:53)
--- NOTE | 2023-06-22 10:04 | P.PN ---
Subjective Progress Note Date: 06/22/23 Principal diagnosis: Right wrist pyogenic extensor tenosynovitis patient was seen at bedside this morning lying semirecumbent position with Kerlix bandage present over right hand/wrist. Patient does have PICC line in the left upper extremity. PICC line was placed this morning. Patient says he is having minimal pain at this time to the right hand. Cultures are pending at this time.Patient says there is a little bit of numbness and tingling in the digits however it is tolerable. Patient says he has urinated daily since surgery was performed. Patient denies any other changes at this time. Patient denies chest pain, fever, shards of breath, nausea, vomiting, change in vision, loss of bowel/bladder control. Objective - Vital Signs Vital signs: Vital Signs Temp 98.1 F 06/22/23 07:26 Pulse 62 06/22/23 07:26 Resp 16 06/22/23 07:26 BP 120/77 06/22/23 07:26 Pulse Ox 98 06/22/23 07:26 FiO2 Intake & Output 06/21/23 06/22/23 06/22/23 18:59 06:59 18:59 Intake Total 118 Balance 118 Intake: Oral 118 Other: # Voids 2 3 - Exam Inspection: Kerlix bandage present over right hand wrist/hand. Taken down. I ncision healing well, sutures aligned. Negative for any active drainage. Negative for fluctuance/purulence. fair amount swelling present over dorsum right hand. negative for erythema. Sensation: Sensation is equal, symmetric, bilaterally intact throughout the upper upper extremities Palpation: Moderate tenderness to palpation over the right hand dorsum at the wrist on the radial side. TTP does extend distally especially over the second third and fourth web spaces. Fingertips are nontender to palpation. Range of motion: Patient does keep wrist held close to full extension and fingers in flexion. Patient is unable to flex right wrist without having increasing pain. Patient has full range of motion in flexion/extension of right elbow. Motor: 5/5 in all major motor groups in left upper extremity. 5/5 in right elbow in resisted flexion/extension. 4-/5 and right wrist in resisted flexion extension. Special tests: Negative Homans bilaterally. Neurovascular: Radial pulse intact, 2+ bilaterally. Cap refill under 3 seconds in digits in upper extremities. - Labs CBC & Chem 7: 06/22/23 05:19 06/22/23 05:19 Labs: Abnormal Lab Results - Last 24 Hours (Table) 06/21/23 06/22/23 06/22/23 Range/Units 04:26 05:19 05:19 RBC 3.85 L (4.40-5.60) X 10*6/uL Hgb 11.2 L (13.0-17.0) d/dL Hct 35.1 L (39.6-50.0) % MCHC 31.9 L (32.0-37.0) d/dL MPV 9.4 L (9.5-12.2) FL BUN 7.5 L 8 L (9.0-27.0) mg/dL BUN/Creatinine Ratio 9.38 L (12.00-20.00) Ratio Glucose 164 H (70-110) mg/dL Calcium 8.1 L 8.0 L (8.7-10.3) mg/dL Microbiology - Last 24 Hours (Table) 06/20/23 16:42 Gram Stain - Preliminary Wrist - Right 06/20/23 16:42 Gram Stain - Preliminary Hand - Right 06/20/23 16:42 Gram Stain - Preliminary Hand - Right Assessment and Plan Assessment: Right wrist pyogenic extensor tenosynovitis Postoperative day 2 status post: 1.) Right wrist arthrotomy 2.) Right wrist incision, irrigation and debridement of subcutaneous tissue, and tenosynovium. 3.) Right wrist extensor tenosynovectomy Plan: 1. Right wrist pyogenic extensor tenosynovitis - surgery performed 06/20/2023right wrist arthrotomy; right wrist I&D of subcu tissue and tenosynovium; right wrist extensor tenosynovectomy. Patient stable bedside this morning with dressing in place. Dressing was taken down. Incision appears to be clean, dry, intact. surure well aligned. Negative for any active drainage. Plan for hibiclens soak then new dressing to be placed by nurse. Continue Hibiclens soaks TID 15 mins at a time. Continue pain medication as needed. Cultures taken during surgery are pending at this time. Patient may perform gentle range of motion exercises digits and right hand. Abx recs from ID. We will continue to follow patient during his stay in hospital. 2. Appreciate medical management and ID management - abx recs from ID 3. Pain management - tylenol; tramadol 4. DVT ppx - mechanical 5. GI ppx - protonix 6. PT/OT - WBAT 7. Discharge planning - awaiting cultures to finalize before discharging home, as soon as Sunday. Time with Patient: Less than 30
[2023-06-22] MEDS: traMADol 50 MG TAB PO SCH ×3 (10:34→22:37)
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
--- NOTE | 2023-06-22 15:41 | P.PN ---
Subjective Progress Note Date: 06/22/23 Principal diagnosis: Right wrist flexor Tenosynovitis patient is a 37-year male presenting the hospital with a right wrist dorsal wall hand pain and swelling and redness, patient did have a bedside aspiration followed by washout by orthopedic surgery lasted concerning for right wrist pyogenic extensor tenosynovitis culture has been obtained which are currently pending. On today's evaluation that is 06/22/2023, the patient remains to be afebrile patient pain to the right wrist area has decreased in intensity patient denies having any chest pain or shortness of breath or cough no nausea vomiting abdominal pain or diarrhea Objective - Vital Signs Vital signs: Vital Signs Temp 98.1 F 06/22/23 07:26 Pulse 62 06/22/23 08:00 Resp 16 06/22/23 08:00 BP 120/77 06/22/23 07:26 Pulse Ox 98 06/22/23 07:26 FiO2 Intake & Output 06/21/23 06/22/23 06/22/23 18:59 06:59 18:59 Intake Total 118 118 Balance 118 118 Intake: Oral 118 118 Other: # Voids 2 3 - Exam GENERAL DESCRIPTION: A middle-age male lying in bed in no distress RESPIRATORY SYSTEM: Unlabored breathing , decreased breath sounds at bases HEART: S1 S2 regular rate and rhythm , ABDOMEN: Soft , no tenderness EXTREMITIES: Right wrist is currently wrapped in Chad wrap no drainage on the dressing - Labs CBC & Chem 7: 06/22/23 05:19 06/22/23 05:19 Labs: Abnormal Lab Results - Last 24 Hours (Table) 06/22/23 06/22/23 Range/Units 05:19 05:19 RBC 3.85 L (4.40-5.60) X 10*6/uL Hgb 11.2 L (13.0-17.0) d/dL Hct 35.1 L (39.6-50.0) % MCHC 31.9 L (32.0-37.0) d/dL MPV 9.4 L (9.5-12.2) FL BUN 8 L (9-20) mg/dL Calcium 8.0 L (8.4-10.2) mg/dL Microbiology - Last 24 Hours (Table) 06/20/23 16:42 Gram Stain - Preliminary Wrist - Right Wound Culture - Preliminary 06/20/23 16:42 Gram Stain - Preliminary Hand - Right Wound Culture - Preliminary 06/20/23 16:42 Gram Stain - Preliminary Hand - Right Wound Culture - Preliminary Assessment and Plan (1) Pyogenic infection of tendon sheath Current Visit: Yes Status: Acute Code(s): M65.10 - OTHER INFECTIVE (TENO)SYNOVITIS, UNSPECIFIED SITE SNOMED Code(s): 173538367 Plan: 1patient was in the hospital with a right wrist and dorsal hand cellulitis and concern for possible underlying septic arthritis or abscess likely from gram- positive skin jyotsna 2-penicillin allergy as a child however tolerated Unasyn clinically doubt true penicillin allergy 3-patient is status post surgical I&D and deep culture which are currently pending 4-patient to continue Unasyn and vancomycin while waiting for the cultures to be finalized to determine his discharge antibiotics, PICC has been placed by vascular surgery this morning Dictation was produced using [employer] dictation software. please excuse any grammatical, word or spelling errors. Time with Patient: Less than 30
[2023-06-22] MEDS: LACTOBACILLUS ACIDOPHILUS/PECT 1 EACH CAPSULE PO SCH ×2 (15:46→20:37)
[2023-06-22] MEDS: SODIUM CHLORIDE 0.9% 1,000 ML IV SCH (17:05)
[2023-06-22] MEDS: MELATONIN 5 MG TABLET PO SCH (20:37)
[2023-06-23] MEDS: HYDROmorphone 0.5 MG/0.5 ML SYRINGE IVP PRN ×6 (01:44→21:22)
[2023-06-23] MEDS: AMPICILLIN-SULBACTAM 3 GM in SODIUM CHLORIDE 0.9% 100 ML IVPB SCH ×4 (04:43→21:13)
[2023-06-23] MEDS ORDERED: VANCOMYCIN TROUGH DUE 1 EACH MISC MISCELLANE ONE (05:00)
[2023-06-23] MEDS: VANCOMYCIN 1,250 MG in SODIUM CHLORIDE 0.9% 250 ML IVPB SCH (06:34)
[2023-06-23] MEDS: SODIUM CHLORIDE 0.9% 1,000 ML IV SCH ×2 (06:39→15:36)
[2023-06-23] MEDS: SERTRALINE 100 MG TAB PO SCH (08:47)
[2023-06-23] MEDS: LACTOBACILLUS ACIDOPHILUS/PECT 1 EACH CAPSULE PO SCH ×3 (08:47→21:12)
[2023-06-23] MEDS: PANTOPRAZOLE 40 MG/10 ML VIAL IVP SCH (08:47)
[2023-06-23] MEDS: traMADol 50 MG TAB PO SCH ×3 (08:47→22:46)
[2023-06-23] MEDS: TAMSULOSIN 0.4 MG CAP.ER.24H PO SCH (08:48)
[2023-06-23] MEDS: FAMOTIDINE 20 MG TAB PO SCH ×2 (08:49→21:13)
[2023-06-23] MEDS: ATORVASTATIN 10 MG TAB PO SCH (08:49)
--- NOTE | 2023-06-23 09:20 | IR ---
EXAMINATION TYPE: IR cvc insert >=5 years DATE OF EXAM: 06/22/2023 COMPARISON: NONE HISTORY: Antibiotics, 46 cm left basilic, fluoroscopy time 0.2 minutes, DAP 0.1956 Gycm2 Fluoroscopy was provided to the referring clinician.
--- NOTE | 2023-06-23 10:36 | P.PN ---
Subjective Progress Note Date: 06/23/23 Principal diagnosis: Right wrist pyogenic extensor tenosynovitis patient was seen at bedside this morning lying semirecumbent position with Kerlix bandage present over right hand/wrist. Patient does have PICC line in the left upper extremity. PICC line was placed this yesterday. Patient says he is having minimal pain at this time to the right hand. Cultures are pending at this time.Patient says there is a little bit of numbness and tingling in the digits however it is tolerable. Patient says he has urinated daily since surgery was performed. Patient denies any other changes at this time. Patient denies chest pain, fever, shards of breath, nausea, vomiting, change in vision, loss of bowel/bladder control. Objective - Vital Signs Vital signs: Vital Signs Temp 98.2 F 06/23/23 07:47 Pulse 60 06/23/23 07:47 Resp 16 06/23/23 07:47 BP 124/89 06/23/23 07:47 Pulse Ox 96 06/23/23 07:47 FiO2 Intake & Output 06/22/23 06/23/23 06/23/23 18:59 06:59 18:59 Intake Total 236 Balance 236 Intake: Oral 236 Other: # Voids 3 2 - Exam Inspection: Kerlix bandage present over right hand wrist/hand. Taken down. Incision healing well, sutures aligned. Negative for any active drainage. Negative for fluctuance/purulence. fair amount swelling present over dorsum right hand. negative for erythema. Sensation: Sensation is equal, symmetric, bilaterally intact throughout the upper upper extremities Palpation: Moderate tenderness to palpation over the right hand dorsum at the wrist on the radial side. TTP does extend distally especially over the second third and fourth web spaces. Fingertips are nontender to palpation. Range of motion: Patient does keep wrist held close to full extension and fingers in flexion. Patient is unable to flex right wrist without having increasing pain. Patient has full range of motion in flexion/extension of right elbow. Motor: 5/5 in all major motor groups in left upper extremity. 5/5 in right elbow in resisted flexion/extension. 4-/5 and right wrist in resisted flexion extension. Special tests: Negative Homans bilaterally. Neurovascular: Radial pulse intact, 2+ bilaterally. Cap refill under 3 seconds in digits in upper extremities. - Labs CBC & Chem 7: 06/22/23 05:19 06/22/23 05:19 Labs: Microbiology - Last 24 Hours (Table) 06/20/23 16:42 Gram Stain - Final Hand - Right Wound Culture - Final 06/20/23 16:42 Gram Stain - Final Hand - Right Wound Culture - Final 06/20/23 16:42 Gram Stain - Final Wrist - Right Wound Culture - Final Assessment and Plan Assessment: Right wrist pyogenic extensor tenosynovitis Postoperative day 3 status post: 1.) Right wrist arthrotomy 2.) Right wrist incision, irrigation and debridement of subcutaneous tissue, and tenosynovium. 3.) Right wrist extensor tenosynovectomy Plan: 1. Right wrist pyogenic extensor tenosynovitis - surgery performed 06/20/2023right wrist arthrotomy; right wrist I&D of subcu tissue and tenosynovium; right wrist extensor tenosynovectomy. Patient stable bedside this morning with dressing in place. Dressing was taken down. Incision appears to be clean, dry, intact. suture well aligned. Negative for any active drainage. Plan for hibiclens soak then new dressing to be placed by nurse. Continue Hibiclens soaks TID 15 mins at a time. Continue pain medication as needed. Cultures taken during surgery are pending at this time. Patient may perform gentle range of motion exercises digits and right hand. Abx recs from ID. We will continue to follow patient during his stay in hospital. 2. Appreciate medical management and ID management - abx recs from ID 3. Pain management - tylenol; tramadol 4. DVT ppx - mechanical 5. GI ppx - protonix 6. PT/OT - WBAT 7. Discharge planning - awaiting cultures to finalize before discharging home Time with Patient: Less than 30
--- NOTE | 2023-06-23 13:50 | P.PN ---
Subjective Progress Note Date: 06/23/23 Principal diagnosis: Right wrist flexor Tenosynovitis patient is a 37-year male presenting the hospital with a right wrist dorsal wall hand pain and swelling and redness, patient did have a bedside aspiration followed by washout by orthopedic surgery lasted concerning for right wrist pyogenic extensor tenosynovitis culture has been obtained which are currently pending. On today's evaluation that is 06/23/2023, the patient continues to be afebrile, the patient is breathing comfortably on room air, patient pain to the right wrist area has decreased in intensity, patient denies having any chest pain or shortness of breath or cough no nausea vomiting abdominal pain or diarrhea Patient had normal white count of 8.43 as of yesterday no CBC was done today creatinine 0.67 Objective - Vital Signs Vital signs: Vital Signs Temp 98.2 F 06/23/23 07:47 Pulse 60 06/23/23 07:47 Resp 16 06/23/23 07:47 BP 124/89 06/23/23 07:47 Pulse Ox 96 06/23/23 07:47 FiO2 Intake & Output 06/22/23 06/23/23 06/23/23 18:59 06:59 18:59 Intake Total 236 Balance 236 Intake: Oral 236 Other: # Voids 3 2 - Exam GENERAL DESCRIPTION: A middle-age male lying in bed in no distress RESPIRATORY SYSTEM: Unlabored breathing , decreased breath sounds at bases HEART: S1 S2 regular rate and rhythm , ABDOMEN: Soft , no tenderness EXTREMITIES: Right wrist is currently wrapped in Chad wrap no drainage on the dressing - Labs CBC & Chem 7: 06/22/23 05:19 06/22/23 05:19 Labs: Microbiology - Last 24 Hours (Table) 06/20/23 16:42 Gram Stain - Final Hand - Right Wound Culture - Final 06/20/23 16:42 Gram Stain - Final Hand - Right Wound Culture - Final 06/20/23 16:42 Gram Stain - Final Wrist - Right Wound Culture - Final Assessment and Plan (1) Pyogenic infection of tendon sheath Current Visit: Yes Status: Acute Code(s): M65.10 - OTHER INFECTIVE (TENO)SYNOVITIS, UNSPECIFIED SITE SNOMED Code(s): 682166854 Plan: 1patient was in the hospital with a right wrist and dorsal hand cellulitis and concern for possible underlying septic arthritis or abscess likely from gram-positive skin jyotsna 2-penicillin allergy as a child however tolerated Unasyn clinically doubt true penicillin allergy 3-patient is status post surgical I&D and deep culture which are so far negative 4We will continue the patient on Unasyn however discontinue vancomycin as no MRSA has been grown, possible discharged home on ceftriaxone on Sunday Dictation was produced using [employer] dictation software. please excuse any grammatical, word or spelling errors. Time with Patient: Less than 30
[2023-06-23] MEDS: ACETAMINOPHEN TAB 325 MG TAB PO PRN (17:40)
[2023-06-23] MEDS: MELATONIN 5 MG TABLET PO SCH (21:12)
[2023-06-24] MEDS: HYDROmorphone 0.5 MG/0.5 ML SYRINGE IVP PRN ×3 (03:08→22:51)
[2023-06-24] MEDS: AMPICILLIN-SULBACTAM 3 GM in SODIUM CHLORIDE 0.9% 100 ML IVPB SCH ×4 (03:08→20:58)
[2023-06-24] MEDS: SODIUM CHLORIDE 0.9% 1,000 ML IV SCH ×2 (05:07→17:03)
--- NOTE | 2023-06-24 08:14 | P.PN ---
Subjective Progress Note Date: 06/24/23 Principal diagnosis: Right wrist pyogenic extensor tenosynovitis patient was seen at bedside this morning lying semirecumbent position with Kerlix bandage present over right hand/wrist. Patient does have PICC line in the left upper extremity. PICC line was placed this Sunday. Patient says he is having minimal pain at this time to the right hand. Cultures are pending at thi s time.Patient says there is a little bit of numbness and tingling in the digits however it is tolerable. Patient says he has urinated daily since surgery was performed. Patient denies any other changes at this time. Patient denies chest pain, fever, shards of breath, nausea, vomiting, change in vision, loss of bowel/bladder control. Objective - Vital Signs Vital signs: Vital Signs Temp 97.9 F 06/24/23 07:44 Pulse 51 L 06/24/23 07:44 Resp 16 06/24/23 07:44 BP 110/74 06/24/23 07:44 Pulse Ox 95 06/24/23 07:44 FiO2 Intake & Output 06/23/23 06/24/23 06/24/23 18:59 06:59 18:59 Other: # Voids 2 1 - Exam Inspection: Kerlix bandage present over right hand wrist/hand. Taken down. Incision healing well, sutures aligned. Negative for any active drainage. Negative for fluctuance/purulence. fair amount swelling present over dorsum right hand. negative for erythema. Sensation: Sensation is equal, symmetric, bilaterally intact throughout the uppe r upper extremities Palpation: Moderate tenderness to palpation over the right hand dorsum at the w rist on the radial side. TTP does extend distally especially over the second third and fourth web spaces. Fingertips are nontender to palpation. Range of motion: Patient does keep wrist held close to full extension and fingers in flexion. Patient is unable to flex right wrist without having incre asing pain. Patient has full range of motion in flexion/extension of right elbow. Motor: 5/5 in all major motor groups in left upper extremity. 5/5 in right elbow in resisted flexion/extension. 4-/5 and right wrist in resisted flexion extension. Special tests: Negative Homans bilaterally. Neurovascular: Radial pulse intact, 2+ bilaterally. Cap refill under 3 seconds in digits in upper extremities. - Labs CBC & Chem 7: 06/22/23 05:19 06/22/23 05:19 Labs: Microbiology - Last 24 Hours (Table) 06/20/23 16:42 Anaerobic Culture - Preliminary Hand - Right 06/20/23 16:42 Anaerobic Culture - Preliminary Wrist - Right 06/20/23 16:42 Anaerobic Culture - Preliminary Hand - Right 06/20/23 16:42 Gram Stain - Final Hand - Right Wound Culture - Final 06/20/23 16:42 Gram Stain - Final Hand - Right Wound Culture - Final 06/20/23 16:42 Gram Stain - Final Wrist - Right Wound Culture - Final Assessment and Plan Assessment: Right wrist pyogenic extensor tenosynovitis Postoperative day 4 status post: 1.) Right wrist arthrotomy 2.) Right wrist incision, irrigation and debridement of subcutaneous tissue, and tenosynovium. 3.) Right wrist extensor tenosynovectomy Plan: 1. Right wrist pyogenic extensor tenosynovitis - surgery performed 06/20/2023right wrist arthrotomy; right wrist I&D of subcu tissue and tenos ynovium; right wrist extensor tenosynovectomy. Patient stable bedside this morning with dressing in place. Dressing was taken down. Incision appears to be clean, dry, intact. suture well aligned. Negative for any active drainage. Plan for hibiclens soak then new dressing to be placed by nurse. Continue Hibiclens soaks TID 15 mins at a time. Continue pain medication as needed. Cultures taken during surgery have finalized, no growth. Patient may perform gentle range of motion exercises digits and right hand. Abx recs from ID. We will continue to follow patient during his stay in hospital. 2. Appreciate medical management and ID management - abx recs from ID 3. Pain management - tylenol; tramadol 4. DVT ppx - mechanical 5. GI ppx - protonix 6. PT/OT - WBAT 7. Discharge planning - plan for dishcarge home tomorrow, 06/25/2023 Time with Patient: Less than 30
[2023-06-24] MEDS: SERTRALINE 100 MG TAB PO SCH (09:29)
[2023-06-24] MEDS: PANTOPRAZOLE 40 MG/10 ML VIAL IVP SCH (09:29)
[2023-06-24] MEDS: traMADol 50 MG TAB PO SCH ×3 (09:29→20:56)
[2023-06-24] MEDS: FAMOTIDINE 20 MG TAB PO SCH ×2 (09:30→20:58)
[2023-06-24] MEDS: LACTOBACILLUS ACIDOPHILUS/PECT 1 EACH CAPSULE PO SCH ×3 (09:30→20:58)
[2023-06-24] MEDS: ATORVASTATIN 10 MG TAB PO SCH (09:30)
[2023-06-24] MEDS: TAMSULOSIN 0.4 MG CAP.ER.24H PO SCH (09:30)
--- NOTE | 2023-06-24 10:51 | P.PN ---
Subjective 06/24/2023: Patient is a 37-year-old male known to the practice. He was diagnosed with spontaneous right wrist pad genic extensor tenosynovitis. He had I&D along with the right wrist arthrotomy and is receiving IV antibiotics currently and Unasyn. He was previously on vancomycin. He is receiving tramadol IV hydromorphone for pain. This morning he denies any significant complaints. He specifically denies any chest pains, pressures, short of breath, nausea, vomiting, diarrhea, constipation. I discussed case with his nurse. He remains inpatient request infectious disease, was on consult. Objective - Vital Signs Vital signs: Vital Signs Temp 97.9 F 06/24/23 07:44 Pulse 51 L 06/24/23 07:44 Resp 16 06/24/23 07:44 BP 110/74 06/24/23 07:44 Pulse Ox 95 06/24/23 07:44 FiO2 Intake & Output 06/23/23 06/24/23 06/24/23 18:59 06:59 18:59 Other: # Voids 2 1 - Exam General: The patient is awake and alert, in no distress, and does not appear acutely ill. Neck: The neck is supple, there is no thyromegaly, lymphadenopathy, tenderness or JVD. Cardiovascular: S1S2 is normal, There is a regular rate and rhythm. No murmur, rub or gallop is appreciated. Respiratory: Lungs are clear to auscultation bilaterally, respirations are non-labored, breath sounds are equal. Gastrointestinal: Soft, non-distended, non-tender abdomen without masses or organomegaly noted. There is no rebound or guarding present. Bowel sounds are unremarkable. Musculoskeletal: Normal ROM, no tenderness, There is no pedal edema. There is no calf tenderness or swelling. No cords were appreciated. Neurological: CN II-XII intact, there are no obvious motor or sensory deficits. Coordination appears grossly intact. Speech is normal. Skin: Skin is warm and dry and no rashes or lesions are noted. There is a dressing to the right wrist and hand. It is intact - Labs CBC & Chem 7: 06/22/23 05:19 06/22/23 05:19 Labs: Microbiology - Last 24 Hours (Table) 06/20/23 16:42 Anaerobic Culture - Preliminary Hand - Right 06/20/23 16:42 Anaerobic Culture - Preliminary Wrist - Right 06/20/23 16:42 Anaerobic Culture - Preliminary Hand - Right 06/20/23 16:42 Gram Stain - Final Hand - Right Wound Culture - Final 06/20/23 16:42 Gram Stain - Final Hand - Right Wound Culture - Final 06/20/23 16:42 Gram Stain - Final Wrist - Right Wound Culture - Final Assessment and Plan (1) Infected hand Current Visit: Yes Status: Acute Code(s): L08.9 - LOCAL INFECTION OF THE SKIN AND SUBCUTANEOUS TISSUE, UNSP SNOMED Code(s): 116712377 (2) Pyogenic infection of tendon sheath Current Visit: Yes Status: Acute Code(s): M65.10 - OTHER INFECTIVE (TENO)SYNOVITIS, UNSPECIFIED SITE SNOMED Code(s): 996744932 (3) Mixed hyperlipidemia Current Visit: Yes Status: Acute Code(s): E78.2 - MIXED HYPERLIPIDEMIA SNOMED Code(s): 926503312 (4) Shift work sleep disorder Current Visit: Yes Status: Acute Code(s): G47.26 - CIRCADIAN RHYTHM SLEEP DISORDER, SHIFT WORK TYPE SNOMED Code(s): 468262751 (5) BPH (benign prostatic hyperplasia) Current Visit: Yes Status: Acute Code(s): N40.0 - BENIGN PROSTATIC HYPERPLASIA WITHOUT LOWER URINRY TRACT SYMP SNOMED Code(s): 634259363 (6) Depression with anxiety Current Visit: Yes Status: Acute Code(s): F41.8 - OTHER SPECIFIED ANXIETY DISORDERS SNOMED Code(s): 713522663 Plan: He remains on Unasyn per infectious disease. Pain management by orthopedics is tramadol and hydromorphone this time. He remains on tamsulosin for BPH, sertraline for his depression, anxiety, atorvastatin for hyperlipidemia. Modafinil is currently on hold. Expect patient to be discharged home tomorrow on ceftriaxone per infectious disease. He is medically cleared for discharge. He can continue pantoprazole for GI prophylaxis, ambulation for DVT prophylaxis. We will follow him with you as needed.
[2023-06-24] MEDS: ACETAMINOPHEN TAB 325 MG TAB PO PRN (17:33)
[2023-06-24] MEDS: MELATONIN 5 MG TABLET PO SCH (20:58)
--- NOTE | 2023-06-24 22:42 | P.PN ---
Subjective Progress Note Date: 06/24/23 Principal diagnosis: Right wrist flexor Tenosynovitis patient is a 37-year male presenting the hospital with a right wrist dorsal wall hand pain and swelling and redness, patient did have a bedside aspiration followed by washout by orthopedic surgery lasted concerning for right wrist pyogenic extensor tenosynovitis culture has been obtained which are currently pending. On today's evaluation that is 06/24/2023, the patient remains to be afebrile, the patient is breathing comfortably on room air, patient pain to the right wrist area has decreased in intensity, patient denies having any chest pain or shortness of breath or cough no nausea vomiting abdominal pain or diarrhea, no new symptoms Patient had normal white count of 8.43 and creatinine 0.67 , as of 06/22/2023 , no labs drawn today Objective - Vital Signs Vital signs: Vital Signs Temp 97.9 F 06/24/23 07:44 Pulse 51 L 06/24/23 07:44 Resp 16 06/24/23 07:44 BP 110/74 06/24/23 07:44 Pulse Ox 95 06/24/23 07:44 FiO2 Intake & Output 06/23/23 06/24/23 06/24/23 18:59 06:59 18:59 Other: # Voids 2 1 - Exam GENERAL DESCRIPTION: A middle-age male lying in bed in no distress RESPIRATORY SYSTEM: Unlabored breathing , decreased breath sounds at bases HEART: S1 S2 regular rate and rhythm , ABDOMEN: Soft , no tenderness EXTREMITIES: Right wrist is stitched swelling redness has decreased no drainage - Labs CBC & Chem 7: 06/22/23 05:19 06/22/23 05:19 Labs: Microbiology - Last 24 Hours (Table) 06/20/23 16:42 Anaerobic Culture - Preliminary Hand - Right 06/20/23 16:42 Anaerobic Culture - Preliminary Wrist - Right 06/20/23 16:42 Anaerobic Culture - Preliminary Hand - Right 06/20/23 16:42 Gram Stain - Final Hand - Right Wound Culture - Final 06/20/23 16:42 Gram Stain - Final Hand - Right Wound Culture - Final 06/20/23 16:42 Gram Stain - Final Wrist - Right Wound Culture - Final Assessment and Plan (1) Pyogenic infection of tendon sheath Current Visit: Yes Status: Acute Code(s): M65.10 - OTHER INFECTIVE (TENO)SYNOVITIS, UNSPECIFIED SITE SNOMED Code(s): 096349048 Plan: 1patient was in the hospital with a right wrist and dorsal hand cellulitis and concern for possible underlying septic arthritis or abscess likely from gram- positive skin jyotsna 2-penicillin allergy as a child however tolerated Unasyn clinically doubt true penicillin allergy 3-patient is status post surgical I&D and deep culture which are so far negative 4We will continue the patient on Unasyn and will transition to Rocephin 2 g daily on discharge tomorrow and close outpatient follow-up Dictation was produced using [employer] dictation software. please excuse any grammatical, word or spelling errors. Time with Patient: Less than 30
[2023-06-25] MEDS: HYDROmorphone 0.5 MG/0.5 ML SYRINGE IVP PRN ×2 (01:46→12:05)
[2023-06-25] MEDS: AMPICILLIN-SULBACTAM 3 GM in SODIUM CHLORIDE 0.9% 100 ML IVPB SCH ×2 (03:37→09:43)
[2023-06-25] MEDS: PANTOPRAZOLE 40 MG/10 ML VIAL IVP SCH (09:42)
[2023-06-25] MEDS: TAMSULOSIN 0.4 MG CAP.ER.24H PO SCH (09:42)
[2023-06-25] MEDS: LACTOBACILLUS ACIDOPHILUS/PECT 1 EACH CAPSULE PO SCH (09:42)
[2023-06-25] MEDS: FAMOTIDINE 20 MG TAB PO SCH (09:42)
[2023-06-25] MEDS: SERTRALINE 100 MG TAB PO SCH (09:42)
[2023-06-25] MEDS: traMADol 50 MG TAB PO SCH (09:42)
[2023-06-25] MEDS: ATORVASTATIN 10 MG TAB PO SCH (09:42)
[2023-06-25] MEDS: SODIUM CHLORIDE 0.9% 1,000 ML IV SCH (09:43)
[2023-06-25 09:45] VITALS: RESP 14
--- NOTE | 2023-06-25 11:28 | P.DS ---
Providers Date of admission: 06/22/23 10:38 Expected date of discharge: 06/25/23 Attending physician: Mohamud Romero DO Consults: 06/20/23 07:26 Consult Physician Urgent Consulting Provider: Ines Wilks Consult Reason/Comments: medical clearance for hand surgery Do you want consulting provider notified?: Yes 06/20/23 09:10 Consult Physician Routine Consulting Provider: Maureen Lara Consult Reason/Comments: ID management - right hand infection Do you want consulting provider notified?: Yes Primary care physician: [facility] Course: Date of admission: 06/21/2023 Date of discharge: 06/25/2023 Admission diagnosis: Right wrist pyogenic extensor tenosynovitis Attending physician: Dr. Romero Surgical procedures: 1.) Right wrist arthrotomy 2.) Right wrist incision, irrigation and debridement of subcutaneous tissue, and tenosynovium. 3.) Right wrist extensor tenosynovectomy Brief history: Patient is a 37-year-old male with a history of right wrist pyogenic extensor tenosynovitis. At this point patient has failed conservative treatment measures and has opted to proceed with a elective right wrist arthrotomy; right wrist incision irrigation debridement of subcu tissue; right wrist extensor tenosynovectomy. Hospital course: Details of patient's surgery can be found in operative report. Patient tolerated the procedure well and was subsequently transported to orthopedic floor. Patient's orthopeidc and medical care was provided daily. Patient had daily laboratory tests performed for evaluation of overall blood counts. Patient had daily physical therapy to include strengthening range of motion as well as education with walker ambulation. Patient was noted to have a relatively uneventful postoperative course. Patient reported satisfactory pain control with oral pain medications by postoperative day 2 Patient showed satisfactory progress with physical therapy. Patient moved steadily through the program and had no difficulty meeting the goals by postoperative day 2. Given patient's otherwise satisfactory course and having met physical therapy goals, plan is to discharge patient home on postoperative day 5. Discharge condition/disposition: Patient will be discharged home in stable condition. Discharge medications: Instructions are given on resumption of patient's normal daily medications per primary care recommendation, in addition patient will be prescribed tramadol Discharge instructions: 1. Wound care and infection precautions, keep incision dry and covered while showering no lotions, creams, moisturizers. No soaking, tubs, pools, hottubs. Do not scrub over the incision. 2. Ice and elevate when necessary. Do not exceed 20 minutes per hour with ice pack. 3. gentle range of motion exercises 4. Visiting nursing care. 5. Pain meds per prescription. 6. Pain medication has potential to cause constipation. Increase oral fluid and fiber intake. Contact primary care provider if you have not had a bowel movement within 48 hours after discharge. 7. Follow up in office at [address] Romero 8. Follow up with your primary care doctor 7-10 days after discharge. 9. Contact [facility] with any questions, . Assessment: Right wrist pyogenic extensor tenosynovitis Procedures: 1.) Right wrist arthrotomy 2.) Right wrist incision, irrigation and debridement of subcutaneous tissue, and tenosynovium. 3.) Right wrist extensor tenosynovectomy Patient Condition at Discharge: Fair Plan - Discharge Summary Discharge Rx Participant: Yes New Discharge Prescriptions: New traMADol HCL 50 mg PO Q8H #18 tab No Action Sertraline [Zoloft] 100 mg PO DAILY Fexofenadine HCl [Gloria Allergy] 180 mg PO DAILY Tamsulosin [Flomax] 0.4 mg PO DAILY modafiniL [Provigil] 200 mg PO DAILY Atorvastatin [Lipitor] 10 mg PO DAILY Discharge Medication List Atorvastatin [Lipitor] 10 mg PO DAILY 06/19/23 [History] Fexofenadine HCl [Gloria Allergy] 180 mg PO DAILY 06/19/23 [History] Sertraline [Zoloft] 100 mg PO DAILY 06/19/23 [History] Tamsulosin [Flomax] 0.4 mg PO DAILY 06/19/23 [History] modafiniL [Provigil] 200 mg PO DAILY 06/19/23 [History] traMADol HCL 50 mg PO Q8H #18 tab 06/25/23 [Rx] Follow up Appointment(s)/Referral(s): Mohamud Romero DO [Doctor of Osteopathic Medicine] - 2 Weeks Artis Lyman Jr, DO [Primary Care Provider] - 1-2 days Maureen Lara MD [STAFF PHYSICIAN] - 1 Week Activity/Diet/Wound Care/Special Instructions: Discharge instructions: 1. Wound care and infection precautions, keep incision dry and covered while showering no lotions, creams, moisturizers. No soaking, tubs, pools, hottubs. Do not scrub over the incision. 2. Ice and elevate when necessary. Do not exceed 20 minutes per hour with ice pack. 3. gentle range of motion exercises 4. Visiting nursing care. 5. Pain meds per prescription. 6. Pain medication has potential to cause constipation. Increase oral fluid and fiber intake. Contact primary care provider if you have not had a bowel movement within 48 hours after discharge. 7. Follow up in office at [address] Romero 8. Follow up with your primary care doctor 7-10 days after discharge. 9. Contact [facility] with any questions, . Discharge Disposition: HOME WITH HOME HEALTH SERVICES
--- NOTE | 2023-06-25 11:30 | P.PN ---
Subjective Progress Note Date: 06/25/23 Principal diagnosis: Right wrist pyogenic extensor tenosynovitis patient was seen at bedside this morning lying semirecumbent position with Kerlix bandage present over right hand/wrist. Patient does have PICC line in the left upper extremity. PICC line was placed Sunday. Patient says he is having minimal pain at this time to the right hand. Patient says there is a little bit of numbness and tingling in the digits however it is tolerable. Patient says he has urinated daily since surgery was performed. Patient denies any other changes at this time. Patient denies chest pain, fever, shards of breath, nausea, vomiting, change in vision, loss of bowel/bladder control. Objective - Vital Signs Vital signs: Vital Signs Temp 97.8 F 06/25/23 01:07 Pulse 70 06/25/23 01:07 Resp 12 06/25/23 01:07 BP 119/76 06/25/23 01:07 Pulse Ox 99 06/25/23 01:07 FiO2 - Exam Inspection: Kerlix bandage present over right hand wrist/hand. Taken down. Incision healing well, sutures aligned. Negative for any active drainage. Negative for fluctuance/purulence. fair amount swelling present over dorsum right hand. negative for erythema. Sensation: Sensation is equal, symmetric, bilaterally intact throughout the upper upper extremities Palpation: Moderate tenderness to palpation over the right hand dorsum at the wrist on the radial side. TTP does extend distally especially over the second third and fourth web spaces. Fingertips are nontender to palpation. Range of motion: Patient does keep wrist held close to full extension and fingers in flexion. Patient is unable to flex right wrist without having increasing pain. Patient has full range of motion in flexion/extension of right elbow. Motor: 5/5 in all major motor groups in left upper extremity. 5/5 in right elbow in resisted flexion/extension. 4-/5 and right wrist in resisted flexion exte nsion. Special tests: Negative Homans bilaterally. Neurovascular: Radial pulse intact, 2+ bilaterally. Cap refill under 3 seconds in digits in upper extremities. - Labs CBC & Chem 7: 06/22/23 05:19 06/22/23 05:19 Assessment and Plan Assessment: Right wrist pyogenic extensor tenosynovitis Postoperative day 5 status post: 1.) Right wrist arthrotomy 2.) Right wrist incision, irrigation and debridement of subcutaneous tissue, and tenosynovium. 3.) Right wrist extensor tenosynovectomy Plan: 1. Right wrist pyogenic extensor tenosynovitis - surgery performed 06/20/2023right wrist arthrotomy; right wrist I&D of subcu tissue and tenosynovium; right wrist extensor tenosynovectomy. Patient stable bedside this morning with dressing in place. Dressing was taken down. Incision appears to be clean, dry, intact. suture well aligned. Negative for any active drainage. Plan for hibiclens soak then new dressing to be placed by nurse. Continue Hibiclens soaks TID 15 mins at a time. Continue pain medication as needed. Cultures taken during surgery have finalized, no growth. Patient may perform gentle range of motion exercises digits and right hand. Abx recs from ID. discharge home today 2. Appreciate medical management and ID management - abx recs from ID 3. Pain management - tylenol; tramadol 4. DVT ppx - mechanical 5. GI ppx - protonix 6. PT/OT - WBAT 7. Discharge planning - plan for dishcarge home today, 06/25/2023 Time with Patient: Less than 30
[2023-06-25 15:36] VITALS: BP 126/81; PULSE 71; TEMP 98.4
== END 2023-06-25 15:30 | disposition home health service (06) | DRG 501 ==
LOC: EC 17:44 → 6NMEDSUR 19:47 → OBSVTOIN 06-22 10:38
PROVIDERS: ADMIT Orthopaedic Surgery Hand Surgery; ATTEND Orthopaedic Surgery Hand Surgery
PROC: 0LB50ZZ Excision of Right Lower Arm and Wrist Tendon, Open Approach (ICD-10-PCS; principal; 2023-06-20 11:30)
PROC: 02HV33Z Insertion of Infusion Device into Superior Vena Cava, Percutaneous Approach (ICD-10-PCS; 2023-06-22)
DX: M65.131 Other infective (teno)synovitis, right wrist (principal); L03.113 Cellulitis of right upper limb; E78.2 Mixed hyperlipidemia; F32.A Depression, unspecified; F41.9 Anxiety disorder, unspecified; F90.9 Attention-deficit hyperactivity disorder, unspecified type; N40.0 Benign prostatic hyperplasia without lower urinary tract symptoms; Z53.9 Procedure and treatment not carried out, unspecified reason; Z88.0 Allergy status to penicillin; Z79.899 Other long term (current) drug therapy; F12.10 Cannabis abuse, uncomplicated; D64.9 Anemia, unspecified; D72.829 Elevated white blood cell count, unspecified; Z87.81 Personal history of (healed) traumatic fracture; R79.82 Elevated C-reactive protein (CRP)
CPT/HCPCS: 36573; 80048; 80202; 82565; 85025; 85652; 86140; 87040; 87070; 87075; 87205; 96361; 96374; 99285

== ENCOUNTER → 2025-04-15 | Outpatient (CLI) | payer OTHER ==
[2025-04-15 15:50] LABS: Basophils # (A) 0.09 X 10*3/uL (0.00-0.10); Basophils % (A) 0.6 %; Eosinophils % (A) 2.1 %; HCT 42.3 % (39.6-50.0); HGB 13.7 g/dL (13.0-17.0); Lymphocytes # (A) 2.25 X 10*3/uL (0.90-5.00); Lymphocytes % (A) 15.4 %; MCH 28.8 pg (27.0-32.0); MCHC 32.4 g/dL (32.0-37.0); MCV 89.1 FL (80.0-97.0); Mean Platelet Volume 8.9 FL (9.5-12.2); Monocytes # (A) 1.14 X 10*3/uL (0.20-1.00); Monocytes % (A) 7.8 %; NRBC Per 100 WBC 0 X 10*3/uL (0.00-0.01); Neutrophils # (A) 10.77 X 10*3/uL (1.80-7.70); Neutrophils % (A) 73.6 %; Platelet Count 402 X 10*3/uL (140-440); RBC 4.75 X 10*6/uL (4.40-5.60); RDW 12.4 % (11.5-14.5); WBC 14.63 X 10*3/uL (4.50-10.00)
[2025-04-15 16:00] LABS: ALT 16 U/L (10-49); AST 18 U/L (14-35); Albumin 4.3 g/dL (3.8-4.9); Albumin/Globulin Ratio 1.59 Ratio (1.60-3.17); Alkaline Phosphatase 79 U/L (41-126); Blood Urea Nitrogen 17.3 mg/dL (9.0-27.0); Calcium 9.3 mg/dL (8.7-10.3); Carbon Dioxide 24.5 mmol/L (21.6-31.8); Chloride 102 mmol/L (96-109); Globulin 2.7 g/dL (1.6-3.3); Glucose 96 mg/dL (70-110); Potassium 4.4 mmol/L (3.5-5.5); Sodium 139 mmol/L (135-145); Total Bilirubin 0.4 mg/dL (0.3-1.2)
== END | disposition home or self-care (01) ==
LOC: LABWHC1 11:31
PROVIDERS: ATTEND Family Medicine
DX: R30.0 Dysuria (principal); R35.0 Frequency of micturition; R31.9 Hematuria, unspecified
CPT/HCPCS: 36415; 80053; 84153; 85025

== ENCOUNTER → 2025-04-17 | Outpatient (CLI) | payer OTHER ==
--- NOTE | 2025-04-17 11:48 | CT ---
EXAMINATION TYPE: CT abdomen pelvis wo con DATE OF EXAM: 04/17/2025 9:14 AM COMPARISON: None CLINICAL INDICATION: Male, 39 years old with history of R30.0,R35.0,R31.9 DYSURIA; kidney stone. Pain ful urination TECHNIQUE: CT of the abdomen and pelvis without IV contrast. Sagittal and coronal reformats were crea emma on a separate workstation. CT DLP: 396.6 mGycm, Automated exposure control for dose reduction was used. FINDINGS: LOWER CHEST: Unremarkable ABDOMEN LIVER: Mildly enlarged at 18.4 cm. No significant fatty infiltration appreciated. GALLBLADDER AND BILE DUCTS: Unremarkable. PANCREAS: Unremarkable. SPLEEN: Inferior splenule. ADRENAL GLANDS: Unremarkable. KIDNEYS AND URETERS: 2 nonobstructive right renal stones measuring up to 4 mm. 2 nonobstructive left renal stones measuring up to 6 mm. No hydronephrosis on either side. PELVIS BLADDER: Mild circumferential bladder wall thickening may relate to incomplete distention. REPRODUCTIVE: Borderline prostatomegaly and 4.0 cm wide. Scattered pelvic phleboliths. No abnormal fl uid collection in the pelvis or pelvic lymphadenopathy. ABDOMEN & PELVIS STOMACH AND BOWEL: No evidence of bowel obstruction. Multiple moderate stool burden. Normal appendix. No pericolonic inflammatory change. PERITONEUM/RETROPERITONEUM: No evidence of pneumoperitoneum or free fluid. VASCULATURE: No evidence of aortic aneurysm. MUSCULOSKELETAL: Multiple bulging discs at L4-L5 and L5-S1. LYMPH NODES: Cystic-appearing nodule in the left periaortic retroperitoneum at the level of the kidne ys measuring 2.7 x 1.4 cm. Etiology unclear. No gross evidence for lymphadenopathy. SOFT TISSUE/ABDOMINAL WALL: Unremarkable IMPRESSION: 1. Bilateral nephrolithiasis with a couple stones on each side measuring up to 6 mm. No hydronephros is. 2. Mild circumferential bladder wall thickening may relate to incomplete distention. Correlate to exc lude cystitis. 3. Borderline prostatomegaly of 4.0 cm wide. Correlate with patient's symptoms and PSA values. 4. Nodule in the left retroperitoneum at the level of the kidneys measuring 2.7 x 1.4 cm. Given the s omewhat low density/cystic appearance, abnormal adenopathy is considered less likely. Lymphangioma, p araganglioma,, and nerve sheath tumor are some considerations. Recommend follow-up CT in 6 months to assess for stability. [facility], , 04/17/2025 11:45 AM
== END | disposition home or self-care (01) ==
LOC: RADCTMAIN 08:15
PROVIDERS: ATTEND Family Medicine
DX: N20.0 Calculus of kidney (principal); D18.1 Lymphangioma, any site; D44.7 Neoplasm of uncertain behavior of aortic body and other paraganglia
CPT/HCPCS: 74176